=== PATIENT | male | born 1945 | race Caucasian/White ===

== ENCOUNTER 2019-05-31 14:33 | Emergency (ER) | payer MEDICARE, OTHER ==
--- NOTE | 2019-05-31 14:38 | ED Physician Documentation ---
PD HPI CHEST PAIN - Stated complaint Stated Complaint: IRREGULAR HEART BEAT - History obtained from History obtained from: Patient - History of Present Illness Timing - onset: How many weeks ago (2) Timing - duration: Weeks (2) Timing - details: Gradual onset (has noted feeling of skipping/irregular hert beats at times for couple of weeks, more often the past couple days. He says he feels lightheaded at times with it. No chest pain nor dyspnea. He has not taken pulse rate with it. Does not get sense of fast heart rate, just surges/irregular. No prior similar.), Intermittant Quality: Throbbing (feeling surge in chest at times.). No: Pressure, Tightness, Aching Location: Substernal Radiation: No: Neck, Back Improved by: No: Rest Worsened by: No: Exertion, Eating Associated symptoms: Feeling faint / dizzy, Palpitations, Other (no change in meds. He drinks 2 cups coffee daily. No alcohol. Nonsmoker.). No: Shortness of air, Nausea, General Weakness Similar symptoms before: Has not had sx before Recently seen: Not recently seen Review of Systems Constitutional: denies: Fever, Chills, Myalgias Nose: denies: Rhinorrhea / runny nose, Congestion Throat: denies: Sore throat Cardiac: reports: Palpitations. denies: Pedal edema, Calf pain Respiratory: denies: Cough, Wheezing GI: denies: Nausea, Vomiting, Diarrhea Neurologic: denies: Focal weakness, Numbness, Near syncope, Altered mental stat us Psychiatric: reports: Depressed, Anxiety. denies: Insomnia PD PAST MEDICAL HISTORY - Present Medications Home Medications: Ambulatory Orders Medication Instructions Recorded Confirmed Metoprolol Tartrate [Lopressor] 12.5 mg PO DAILY #7 tablet 05/31/19 Potassium Chloride 10 meq PO DAILY #10 tablet.er 05/31/19 - Allergies Allergies/Adverse Reactions: Allergies Allergy/AdvReac Type Severity Reaction Status Date / Time No Known Drug Allergies Allergy Verified 05/31/19 14:40 PD ED PE NORMAL - Vitals Vital signs reviewed: Yes - General General: Alert and oriented X 3, No acute distress, Well developed/nourished, Other (moderately anxious. He says he is feeling the symptoms at times here in the ER. Monitor showing PACs with normal pauses. No other irregularity here. ) - HEENT HEENT: Ears normal, Moist mucous membranes, Pharynx benign - Neck Neck: Supple, no meningeal sign, No adenopathy, Thyroid normal - Cardiac Cardiac: RRR, No murmur - Respiratory Respiratory: Clear bilaterally - Abdomen Abdomen: Normal bowel sounds, Soft, Non tender - Back Back: No CVA TTP - Derm Derm: Normal color, Warm and dry - Extremities Extremities: No deformity, No tenderness to palpate, Normal ROM s pain, No edema, No calf tenderness / cord - Neuro Neuro: Alert and oriented X 3, No motor deficit, Normal speech Results - Vitals Vitals: Vital Signs - 24 hr 05/31/19 05/31/19 05/31/19 14:41 14:51 15:13 Temperature 36.8 C Heart Rate 87 85 66 Respiratory 18 22 22 Rate Blood Pressure 135/80 H 135/76 H 130/81 H O2 Saturation 100 100 100 05/31/19 05/31/19 15:57 16:00 Temperature Heart Rate 66 66 Respiratory 18 20 Rate Blood Pressure 120/73 132/77 H O2 Saturation 97 97 Oxygen O2 Source Room air - EKG (time done) 14:43 Rate: Rate (enter#) (89) Rhythm: NSR (with frequent PACs) [place]: Normal Intervals: Normal VA QRS: Normal Ischemia: Normal ST segments. No: ST elevation c/w ischemia, ST depression Compare to prior EKG: Old EKG unavailable Computer interpretation: Agree with computer - Labs Labs: Laboratory Tests 05/31/19 05/31/19 05/31/19 14:42 14:42 14:42 WBC 7.0 RBC 5.22 Hgb 15.3 Hct 46.6 MCV 89.3 MCH 29.3 MCHC 32.8 RDW 13.2 Plt Count 284 MPV 8.8 Neut # (Auto) 3.5 Lymph # (Auto) 2.7 [place] # (Auto) 0.6 Eos # (Auto) 0.1 Baso # (Auto) 0.0 Absolute Nucleated RBC 0.00 Nucleated RBC % 0.0 Sodium 134 L Potassium 3.7 Chloride 100 L Carbon Dioxide 25 Anion Gap 9.0 BUN 16 Creatinine 0.9 Estimated GFR (MDRD) 83 L Glucose 99 Calcium 9.0 Magnesium Total Bilirubin 1.1 H AST 21 ALT 20 Alkaline Phosphatase 33 L Troponin I High Sens 2.4 Total Protein 7.1 Albumin 4.4 Globulin 2.7 Albumin/Globulin Ratio 1.6 Lipase 33 TSH 05/31/19 05/31/19 14:42 14:42 WBC RBC Hgb Hct MCV MCH MCHC RDW Plt Count MPV Neut # (Auto) Lymph # (Auto) [place] # (Auto) Eos # (Auto) Baso # (Auto) Absolute Nucleated RBC Nucleated RBC % Sodium Potassium Chloride Carbon Dioxide Anion Gap BUN Creatinine Estimated GFR (MDRD) Glucose Calcium Magnesium 2.1 Total Bilirubin AST ALT Alkaline Phosphatase Troponin I High Sens Total Protein Albumin Globulin Albumin/Globulin Ratio Lipase TSH 2.92 - Rads (name of study) chest xray Radiology: Prelim report reviewed (normal), See rad report PD MEDICAL DECISION MAKING - ED course Complexity details: reviewed results, re-evaluated patient (feeling better with fluids/metoprolol and having no PACs at this point. ), considered differential (Showing only PACs while here and is having symptoms here, so seems to be just that. Consider Holter through PCP to ensure not episodic atrial fib or such. Does not seem at risk for V-Tach and does not sound like that. He is having enough anxiety about it though, that seems treating short term is reasonable, so can give low dose betablocker for short term, decrease caffeine, and add potassium supplement. FU with PCP. ), d/w patient Departure - Departure Disposition: 01 Home, Self Care Clinical Impression: Palpitations, PAC (premature atrial contraction) Condition: Stable Record reviewed to determine appropriate education?: Yes Instructions: ED Palpitations Follow-Up: Bonifacio Jaffe MD [Primary Care Provider] - Prescriptions: Metoprolol Tartrate [Lopressor] 12.5 mg PO DAILY #7 tablet Potassium Chloride 10 meq PO DAILY #10 tablet.er Comments: Your heart monitor shows just some extra beats called PACs. These are benign but can be annoying. Stay well-hydrated. Decrease your caffeine use. Add a potassium supplement daily for 10 days. Your potassium level was low in the normal range may benefit to have it more in the upper end of the range. You can use metoprolol low-dose tablet daily for the next week or so. However I would see how you do after that without it as the above interventions may have decreased the palpitations by that point. Follow-up with your primary care this coming week. They could potentially set you up with a heart recording device that records for 3 to 7 days to ensure there is no other irregularity of your heart rhythm other than the palpitations. Discharge Date/Time: 05/31/19 16:38
[2019-05-31 14:52] LABS: BASOPHILS % (AUTO) 0.6 %; EOSINOPHILS # (AUTO) 0.1 10^3/uL (0.0-0.7); HGB - HEMOGLOBIN 15.3 g/dL (14.0-18.0); LYMPHOCYTES # (AUTO) 2.7 10^3/uL (1.5-3.5); LYMPHOCYTES % (AUTO) 38.9 %; MEAN CORPUSCULAR HEMOGLOBIN 29.3 pg (27.0-31.0); MEAN CORPUSCULAR HGB CONC 32.8 g/dL (32.0-36.0); MEAN CORPUSCULAR VOLUME 89.3 fL (80.0-94.0); MEAN PLATELET VOLUME 8.8 fL (7.4-11.4); MONOCYTES # (AUTO) 0.6 10^3/uL (0.0-1.0); MONOCYTES % (AUTO) 8.2 %; NEUTROPHILS # (AUTO) 3.5 10^3/uL (1.5-6.6); PLT - PLATELET COUNT 284 10^3/uL (130-450); RED BLOOD COUNT 5.22 10^6/uL (4.70-6.10); RED CELL DISTRIBUTION WIDTH 13.2 % (12.0-15.0)
[2019-05-31] MEDS ORDERED: SODIUM CHLORIDE 0.9% 1,000 ML IV ONE (15:02)
[2019-05-31] MEDS ORDERED: METOPROLOL 5 MG/5 ML VIAL IVP STA (15:02)
[2019-05-31 15:04] LABS: ALBUMIN 4.4 g/dL (3.2-5.5); ALBUMIN/GLOBULIN RATIO 1.6 (1.0-2.2); BILIRUBIN,TOTAL 1.1 mg/dL (0.2-1.0); CREATININE 0.9 mg/dL (0.6-1.2); TOTAL PROTEIN 7.1 g/dL (6.7-8.2)
--- NOTE | 2019-05-31 15:24 | XRAY Report ---
Reason: Chest Pain Procedure Date: 05/31/2019 Accession Number: [id number] / [id number] Procedure: XR - Chest 1 View X-Ray CPT Code: 26026 Final Report FULL RESULT: EXAM: CHEST RADIOGRAPHY EXAM DATE: 05/31/2019 02:48 PM. CLINICAL HISTORY: Chest Pain. COMPARISON: None. TECHNIQUE: 1 view. FINDINGS: Lungs/Pleura: No focal opacities evident. No pleural effusion. No pneumothorax. Mediastinum: Within exam limitations, the cardiomediastinal contour is normal. Other: None. IMPRESSION: No focal consolidation. RADIA
[2019-05-31] MEDS ORDERED: POTASSIUM CHLORIDE 20 MEQ TABLET PO STA (15:37)
[2019-05-31 16:25] VITALS: BP 132/77
== END 2019-05-31 16:38 | disposition home or self-care (01) ==
LOC: ED 14:33
DX: R00.2 Palpitations (principal); I49.1 Atrial premature depolarization
CPT/HCPCS: 36415; 71045; 80053; 83690; 83735; 84443; 84484; 85025; 93005; 96374; 99284; A9270

== ENCOUNTER 2022-09-20 13:55 | Outpatient (CLI) | payer MEDICARE, OTHER | END 2022-09-20 23:59 | disposition short-term general hospital (02) | LOC: EMS 13:55 | DX: R00.2 Palpitations (principal); R53.83 Other fatigue; R42 Dizziness and giddiness | CPT/HCPCS: A0425; A0429; A0888 ==